=== PATIENT | male | born 1990 | race Caucasian/White ===

== ENCOUNTER 2023-05-27 16:26 | Emergency (ER) | payer SELFPAY ==
[~2023-05-27] VITALS: Ht 170.2 cm; Wt 61.2 kg
[2023-05-27 16:50] VITALS: BP 133/74; PULSE 71; RESP 16; TEMP 98; O2SAT 100
[2023-05-27] MEDS ORDERED: AMOX1TAB8 PO (17:56)
[2023-05-27 18:01] VITALS: BP 133/74; PULSE 71; RESP 16; TEMP 98; O2SAT 100
== END 2023-05-27 18:01 ==
LOC: MED 16:26
DX: S80.811A Abrasion, right lower leg, initial encounter (principal); S60.511A Abrasion of right hand, initial encounter; L03.113 Cellulitis of right upper limb; L03.115 Cellulitis of right lower limb; F15.10 Other stimulant abuse, uncomplicated; F11.10 Opioid abuse, uncomplicated; W54.0XXA Bitten by dog, initial encounter; Y93.89 Activity, other specified; Y92.89 Other specified places as the place of occurrence of the external cause; Y99.8 Other external cause status
CPT/HCPCS: 99283